=== PATIENT | female | born 1985 | race Caucasian/White ===

== ENCOUNTER 2022-08-12 18:23 | Inpatient (IN) | payer SELFPAY ==
[2022-08-12] MEDS ORDERED: NA CHLORIDE 0.9% 1,000 ML ONE (19:21)
[2022-08-12] MEDS ORDERED: FENTANYL CITR 100 MCG/2 ML ONE (19:21)
[2022-08-12 19:46] LABS: Absolute Lymphocytes (CBC) 2.2 K/uL (0.7-4.9); Hematocrit 38.3 % (36.0-45.0); Lymphocytes % 15.3 % (15.3-44.8); MCV 85.6 fL (80-100); MPV 9.5 fL (7.6-11.3); RBC Red Blood Cell Count 4.47 M/uL (3.86-4.86)
[2022-08-12 20:00] LABS: Albumin 2.5 g/dL (3.4-5.0); Bilirubin Total 0.3 mg/dL (0.2-1.0); Potassium 3.2 mEq/L (3.5-5.1); Protein, Total 6.8 g/dL (6.4-8.2)
--- NOTE | 2022-08-12 20:47 | RAD REPORT ---
EXAM DESCRIPTION: CT - Soft Tissue Neck W/Contr - 08/12/2022 8:23 pm CLINICAL HISTORY: Neck pain with sore throat. Difficulty swallowing COMPARISON: None. TECHNIQUE: Computed axial tomography of the neck was obtained. 50 cc Isovue 300 was administered in travenously. Coronal and sagittal reconstruction was performed. All CT scans are performed using dose optimization technique as appropriate and may include automated exposure control or mA/KV adjustment according to patient size. FINDINGS: The tonsils bilaterally are enlarged. Subtle 7 millimeter low-density area right tonsil.T he oropharynx is narrowed. Small amount of ill-defined retropharyngeal fluid is present. It extends from C3-C5. No enhancing rim . No air The remainder of the pharynx, tongue base, larynx and subglottic trachea appear unremarkable 3 millimeter calcification left parotid gland likely not significant. The right parotid, submandibula r and thyroid glands are unremarkable Several enlarged bilateral lymph nodes. The largest lies and at the left submandibular region. No fluid within the sinuses/mastoids IMPRESSION: Bilateral enlarged tonsils presumably a tonsillitis. Subtle 7 millimeter low-density are a right tonsil may represent a very early abscess Small amount of ill-defined retropharyngeal fluid. A cellulitis is favored over an abscess. This shou ld be correlated clinically. If the patient's symptoms do not improve then a followup MRI imaging wou ld recommended. Neck lymphadenopathy probably reactive in nature. However, as neoplasm can have this appearance it is recommended that the patient have a followup ultrasound in 2-3 months to assess stability/resolution
--- NOTE | 2022-08-12 21:22 | ER ---
Nurse's Notes [facility] Name: Kaleigh Rosas Age: 36 yrs Sex: Female : 1985 Arrival Date: 08/12/2022 Time: 18:23 Bed 14 Private MD: Diagnosis: Acute streptococcal tonsillitis, unspecified Presentation: 08/12 18:28 Chief complaint: Patient states: Sore throat for 3 days, getting worse, unable to nj1 swallow today. Coronavirus screen: Vaccine status: Patient reports receiving the 2nd dose of the covid vaccine. Ebola Screen: Patient denies travel to an Ebola-affected area in the 21 days before illness onset. Initial Sepsis Screen: Does the patient meet any 2 criteria? No. Patient's initial sepsis screen is negative. Does the patient have a suspected source of infection? No. Patient's initial sepsis screen is negative. Risk Assessment: Do you want to hurt yourself or someone else? Patient reports no desire to harm self or others. Onset of symptoms was August 10, 2022. 18:28 Method Of Arrival: Ambulatory [facility] 18:28 Acuity: NORMA 3 nj1 Historical: - Allergies: 18:30 PENICILLINS; nj1 18:30 Mycins; nj1 18:30 Aspirin; nj1 - PMHx: 18:30 Diabetes mellitus; PCOS; nj1 - Immunization history:: Client reports receiving the 2nd dose of the Covid vaccine. - Social history:: Smoking status: Patient reports the use of cigarette tobacco products, smokes one pack cigarettes per day. Reported history of juuling and/or vaping. Screenin:45 [facility] ED Fall Risk Assessment (Adult) History of falling in the last 3 months, kc6 including since admission No falls in past 3 months (0 pts) Confusion or Disorientation No (0 pts) Intoxicated or Sedated No (0 pts) Impaired Gait No (0 pts) Mobility Assist Device Used No (0 pt) Altered Elimination No (0 pt) Score/Fall Risk Level 0 - 2 = Low Risk Oriented to surroundings, Maintained a safe environment, Educated pt \\T\\ family on fall prevention, incl call for assistance when getting out of bed, Assessed \\T\\ reinforced patient's understanding of fall precautions, Hourly rounding (assess needs \\T\\ fall precautionary measures) done. Abuse screen: Denies threats or abuse. Denies injuries from another. Nutritional screening: No deficits noted. Tuberculosis screening: No symptoms or risk factors identified. Assessment: 18:45 General: Appears in no apparent distress. uncomfortable, ill, obese, Behavior is calm, kc6 cooperative, appropriate for age. Pain: Complains of pain in "sore throat". Neuro: [place] Agitation-Sedation Scale (RASS): 0 - Alert and Calm Level of Consciousness is awake, alert, obeys commands, Oriented to person, place, time, situation, Appropriate for age. Cardiovascular: Capillary refill < 3 seconds. Respiratory: Airway is patent Trachea midline Respiratory effort is even, unlabored, Respiratory pattern is regular, symmetrical, Breath sounds are clear bilaterally. GI: No signs and/or symptoms were reported involving the gastrointestinal system. : No signs and/or symptoms were reported regarding the genitourinary system. EENT: Throat is reddened has enlarged tonsils bilaterally with gag reflex present. Derm: No signs and/or symptoms reported regarding the dermatologic system. Skin is intact, is healthy with good turgor, Skin is pink, warm \\T\\ dry. Musculoskeletal: No signs and/or symptoms reported regarding the musculoskeletal system. Circulation, motion, and sensation intact. Capillary refill < 3 seconds, Range of motion: intact in all extremities. 19:20 General: Appears in no apparent distress. uncomfortable, Behavior is calm, cooperative. lg3 Pain: Complains of pain in throat Noted to be grimacing, resistant to movement. Neuro: No deficits noted. [place] Agitation-Sedation Scale (RASS): 0 - Alert and Calm Level of Consciousness is awake, alert, obeys commands, Oriented to person, place, time, situation. Cardiovascular: No deficits noted. Denies chest pain, shortness of breath, Capillary refill < 3 seconds Clubbing of nail beds is absent JVD is absent Patient's skin is warm and dry. Respiratory: No deficits noted. Airway is patent Trachea midline Respiratory effort is even, unlabored, Respiratory pattern is regular, symmetrical, Breath sounds are clear bilaterally. GI: No deficits noted. No signs and/or symptoms were reported involving the gastrointestinal system. Abdomen is round non-distended, obese, Abd is soft and non tender X 4 quads. : No deficits noted. No signs and/or symptoms were reported regarding the genitourinary system. EENT: Throat is reddened has patchy exudate has enlarged tonsils bilaterally. Derm: No deficits noted. No signs and/or symptoms reported regarding the dermatologic system. Skin is intact, is healthy with good turgor, Skin is dry, Skin is normal, Skin temperature is warm. Musculoskeletal: No deficits noted. No signs and/or symptoms reported regarding the musculoskeletal system. Circulation, motion, and sensation intact. Range of motion: intact in all extremities. 21:13 Reassessment: Patient appears in no apparent distress at this time. No changes from lg3 previously documented assessment. Patient and/or family updated on plan of care and expected duration. Pain level reassessed. Patient is alert, oriented x 3, equal unlabored respirations, skin warm/dry/pink. Vital Signs: 18:28 BP 112 / 72; Pulse 86; Resp 18; Temp 98.9; Pulse Ox 99% on R/A; Weight 113.4 kg; Height nj1 5 ft. 3 in. ; Pain 10/10; 19:20 BP 120 / 73; Pulse 81; Resp 17; Pulse Ox 99% on R/A; lg3 18:28 Body Mass Index 44.29 (113.40 kg, 160.02 cm) nj1 18:28 Pain Scale: Adult nj1 ED Course: 18:25 Patient arrived in ED. ts1 18:30 Triage completed. nj1 18:31 Demond Boyd PA is PHCP. cp 18:31 Demond Silva MD is Attending Physician. cp 18:32 Arm band placed on right wrist. nj1 18:41 Lacy Carreon, RN is Primary Nurse. kc6 18:45 Patient has correct armband on for positive identification. Bed in low position. Call kc6 light in reach. Side rails up X 1. Adult w/ patient. 18:55 Inserted saline lock: 20 gauge in right antecubital area, using aseptic technique. db Blood collected. 20:25 CT Soft Tissue Neck W/contr In Process Unspecified. EDMS 21:22 Tristan Todd MD is Hospitalizing Provider. cp 21:30 Procalcitonin Sent. lg3 21:30 Blood Culture Adult (2) Sent. lg3 22:39 No provider procedures requiring assistance completed. Patient admitted, IV remains in lg3 place. intact, No redness/swelling at site. Administered Medications: 19:15 Not Given (med not available. provider notified): Viscous Lidocaine Mucous Membrane lg3 Liquid (4 %) 5 ml Mucous Membrane once 19:19 Drug: NS 0.9% IV 1000 ml Route: IV; Rate: 1 bolus; Site: right antecubital; lg3 21:33 Follow up: IV Status: Completed infusion; IV Intake: 1000ml lg3 19:19 Drug: fentaNYL (PF) IVP 25 mcg Route: IVP; Site: right antecubital; lg3 21:30 Follow up: Response: No adverse reaction; Marked relief of symptoms lg3 21:40 Drug: Rocephin IV 1 grams Route: IV; Rate: calculated rate; Site: right antecubital; pf1 22:41 Follow up: Response: No adverse reaction; IV Status: Completed infusion; IV Intake: [id number] 21:42 Drug: Decadron - Dexamethasone IVP 10 mg Route: IVP; Site: right antecubital; pf1 22:41 Follow up: Response: No adverse reaction lg3 21:44 Drug: Potassium PO Effervescent Tablet 50 mEq Route: PO; pf1 22:41 Follow up: Response: No adverse reaction lg3 Medication: 22:39 VIS not applicable for this client. lg3 Intake: 21:33 IV: 1000ml; Total: 1000ml. lg3 22:41 IV: 10ml; Total: 1010ml. lg3 Outcome: 21:22 Decision to Hospitalize by Provider. cp 22:39 Admitted to Med/surg accompanied by tech, via wheelchair, room 417, Report called to 3 Faustino 22:39 Condition: stable 22:39 Instructed on the need for admit, Demonstrated understanding of instructions. 22:52 Patient left the ED. lg3 Signatures: Dispatcher [employer] EDMS Demond Boyd PA PA cp Crissy Smith RN RN lg3 Lacy Carreon RN RN [email or web address] Petra Guzman RN RN db Finley, Pamala, RN RN pf1 Mima Kaplan RN RN nj1 Sarah Jack PAS PAS ts1 Corrections: (The following items were deleted from the chart) 18:32 18:28 Pulse 86bpm; Resp 18bpm; Pulse Ox 99% RA; Temp 98.9F; 113.4 kg; Height 5 ft. 3 nj1 in.; BMI: 44.2; Pain 11/14, Adult; nj1 18:32 18:28 Acuity: NORMA 4 nj1 nj1
--- NOTE | 2022-08-12 21:22 | EDPHYS ---
Physician Documentation [facility] Name: Kaleigh Rosas Age: 36 yrs Sex: Female : 1985 Arrival Date: 08/12/2022 Time: 18:23 Bed 14 Private MD: [place] Physician Demond Silva HPI: 08/12 18:50 This 36 yrs old Female presents to ER via Ambulatory with complaints of Sore Throat. cp 18:50 The patient presents with sore throat, dysphagia, of both solids and liquids. The cp patient describes throat pain as constant. Onset: The symptoms/episode began/occurred 3 day(s) ago. Severity of symptoms: in the emergency department the symptoms are unchanged, despite home interventions. Modifying factors: the symptoms are aggravated by swallowing. Associated signs and symptoms: Pertinent positives: dysphagia, Pertinent negatives chest pain, cough, diarrhea, vomiting. Historical: - Allergies: 18:30 PENICILLINS; nj1 18:30 Mycins; nj1 18:30 Aspirin; nj1 - PMHx: 18:30 Diabetes mellitus; PCOS; nj1 - Immunization history:: Client reports receiving the 2nd dose of the Covid vaccine. - Social history:: Smoking status: Patient reports the use of cigarette tobacco products, smokes one pack cigarettes per day. Reported history of juuling and/or vaping. ROS: 18:55 Constitutional: Positive for poor PO intake, Negative for fever. cp 18:55 Eyes: Negative for injury, pain, redness, and discharge. cp 18:55 ENT: Positive for difficulty swallowing, sore throat, Negative for drainage from ear(s), ear pain, sinus congestion, difficulty handling secretions. 18:55 Cardiovascular: Negative for chest pain, edema, palpitations. 18:55 Respiratory: Negative for cough, shortness of breath, wheezing. 18:55 Abdomen/GI: Negative for abdominal pain, vomiting, diarrhea, constipation, anorexia. 18:55 Neuro: Negative for altered mental status. 18:55 All other systems are negative. Exam: 19:00 Constitutional: The patient appears in no acute distress, alert, awake, non-toxic, well cp developed, well nourished, obviously ill, uncomfortable. 19:00 Head/Face: Normocephalic, atraumatic. cp 19:00 Eyes: Periorbital structures: appear normal, Conjunctiva: normal, no exudate, no cp injection, Sclera: no appreciated abnormality, Lids and lashes: appear normal, bilaterally. 19:00 ENT: External ear(s): are unremarkable, Ear canal(s): are normal, clear, TM's: dullness, bilaterally, Nose: is normal, Mouth: Lips: moist, Oral mucosa: moist, Posterior pharynx: Airway: no evidence of obstruction, patent, Tonsils: bilaterally enlarged, with erythema, with exudate, Uvula: midline, erythema, that is marked, exudate, is not appreciated. 19:00 Neck: ROM/movement: limited range of motion, is not appreciated, Meningeal signs: are not present, nuchal rigidity, is not appreciated. 19:00 Chest/axilla: Inspection: normal. 19:00 Cardiovascular: Rate: normal, Rhythm: regular. 19:00 Respiratory: the patient does not display signs of respiratory distress, Respirations: normal, no use of accessory muscles, no retractions, labored breathing, is not present, Breath sounds: decreased breath sounds, are not appreciated, + upper airway congestion. wheezing: is not appreciated. 19:00 Abdomen/GI: Inspection: obese Bowel sounds: active, all quadrants, Palpation: soft, in all quadrants, mild abdominal tenderness, in all quadrants. 19:00 Back: CVA tenderness, is absent. 19:00 Skin: no rash present. 19:00 Neuro: Orientation: to person, place \T\ time. Mentation: able to follow commands, slow to respond, Motor: moves all fours, general weakness with no focal deficits. Vital Signs: 18:28 BP 112 / 72; Pulse 86; Resp 18; Temp 98.9; Pulse Ox 99% on R/A; Weight 113.4 kg; Height nj1 5 ft. 3 in. ; Pain 10/10; 19:20 BP 120 / 73; Pulse 81; Resp 17; Pulse Ox 99% on R/A; lg3 18:28 Body Mass Index 44.29 (113.40 kg, 160.02 cm) nj1 18:28 Pain Scale: Adult nj1 MDM: 18:34 Patient medically screened. cp 21:00 ED course: message left on voicemail for DR Sheldon. cp 21:25 Data reviewed: vital signs, nurses notes, lab test result(s), radiologic studies, CT cp scan. 21:25 Differential diagnosis: group A strep tonsillitis, peritonsillar abscess cp retropharyngeal abcess. Consideration of Admission/Observation Patient was admitted/placed on observation. Management of patient was discussed with the following: Technology Specialist: DR Sheldon who will consult on patient. Patient to be admitted to hospitalist, Zackary Juárez, CORE MACHINE OPERATOR after discussion of today's results. 08/12 18:41 Order name: CBC with Diff; Complete Time: 20:00 08/12 20:00 Interpretation: Normal except: WBC 14.50; LEFTY% 75.7; NEUT A 11.0. 08/12 18:41 Order name: CMP; Complete Time: 20:50 08/12 20:50 Interpretation: Normal except: K 3.2; GLUC 161; BUN 6; AST 8; ALT 12; CA 8.4; ALB 2.5; cp GLOB 4.3; A/G 0.6. 07 18:41 Order name: Lactate w/ 2H reflex if indic.; Complete Time: 20:00 08/12 20:00 Interpretation: Reviewed. 08/12 18:41 Order name: Protime (+inr) 08/12 18:41 Order name: Camp Screen Profile; Complete Time: 20:50 08/12 18:41 Order name: Strep; Complete Time: 20:00 08/12 20:00 Interpretation: Abnormal: GP A STREP SC GROUP A STREP SCREEN-- POSITIVE. 08/12 21:00 Order name: Blood Culture Adult (2) 08/12 21:00 Order name: Procalcitonin 08/12 18:41 Order name: CT Soft Tissue Neck W/contr; Complete Time: 20:50 08/12 18:41 Order name: Accucheck; Complete Time: 18:56 08/12 18:41 Order name: Cardiac monitoring; Complete Time: 18:56 08/12 18:41 Order name: IV Saline Lock - Large Bore; Complete Time: 18:56 08/12 18:41 Order name: Labs collected and sent; Complete Time: 18:56 08/12 18:41 Order name: O2 Per Protocol; Complete Time: 18:56 08/12 18:41 Order name: O2 Sat Monitoring; Complete Time: 18:57 cp 08/12 18:41 Order name: Vital Signs; Complete Time: 18:57 cp Administered Medications: 19:15 Not Given (med not available. provider notified): Viscous Lidocaine Mucous Membrane lg3 Liquid (4 %) 5 ml Mucous Membrane once 19:19 Drug: NS 0.9% IV 1000 ml Route: IV; Rate: 1 bolus; Site: right antecubital; lg3 21:33 Follow up: IV Status: Completed infusion; IV Intake: 1000ml lg3 19:19 Drug: fentaNYL (PF) IVP 25 mcg Route: IVP; Site: right antecubital; lg3 21:30 Follow up: Response: No adverse reaction; Marked relief of symptoms lg3 21:40 Drug: Rocephin IV 1 grams Route: IV; Rate: calculated rate; Site: right antecubital; pf1 22:41 Follow up: Response: No adverse reaction; IV Status: Completed infusion; IV Intake: [id number] 21:42 Drug: Decadron - Dexamethasone IVP 10 mg Route: IVP; Site: right antecubital; pf1 22:41 Follow up: Response: No adverse reaction lg3 21:44 Drug: Potassium PO Effervescent Tablet 50 mEq Route: PO; pf1 22:41 Follow up: Response: No adverse reaction lg3 Disposition Summary: 08/12/22 21:22 Hospitalization Ordered Hospitalization Status: Inpatient Admission cp Provider: Tristan Todd cp Location: Telemetry/[facility] (Inpatient) cp Condition: Stable cp Problem: new cp Symptoms: have improved cp Bed/Room Type: Standard cp Room Assignment: 417(08/12/22 21:47) cg Diagnosis - Acute streptococcal tonsillitis, unspecified cp Forms: - Medication Reconciliation Form cp - SBAR form cp Signatures: Dispatcher [employer] EDMS Demond Boyd PA PA cp Rosalinda Cochran RN RN cg Crissy Smith RN RN lg3 Mily Chaudhry RN RN pf1 Mima Kaplan RN RN nj1 Corrections: (The following items were deleted from the chart) 21:47 21:22 cp cg
[2022-08-12] MEDS ORDERED: POTASSIUM 25 MEQ EFFERV TAB ONE (21:41)
[2022-08-12] MEDS ORDERED: CEFTRIAXONE 1000 MG/VIAL ONE (21:41)
[2022-08-12] MEDS ORDERED: dexAMETHasone 10 MG/ML VIAL ONE (21:41)
--- NOTE | 2022-08-12 22:17 | P.HP ---
Certification for Inpatient Patient admitted to: Inpatient With expected LOS: <2 Midnights Patient will require the following post-hospital care: None Practitioner: I am a practitioner with admitting privileges, knowledge of patient current condition, hospital course, and medical plan of care. Services: Services provided to patient in accordance with Admission requirements found in Title 42 Section 412.3 of the Code of Federal Regulations Patient History Date of Service: 08/12/22 Reason for admission: Peritonsillar abscess, retropharyngeal cellulitis History of Present Illness: 36-year-old female with history of dau-tejvmyi-kqttoiskm diabetes, PCOS presents to the emergency department with chief complaint of sore throat, difficulty swallowing which started approximate 2 days ago. She is evaluated in the emergency department her labs are significant for leukocytosis white blood cell count 14.5 potassium 3.2 glucose 161 lactic acid 1.5 positive for strep a CT soft tissue neck performed which revealed bilateral enlarged tonsils presumably a tonsillitis. Subtle 7 mm low-density area right tonsil may represent a very early abscess. Small amount of ill-defined retropharyngeal fluid. A cellulitis is favored over an abscess. ED staff spoke with ENT on-call who recommended admission, they will consult. Patient tolerating secretions, able to speak although her voice is mildly muffled, mild trismus noted. No dyspnea. Allergies Penicillins Allergy (Verified 08/12/22 22:11) unknown - Past Medical/Surgical History -: PCOS -: Diabetes mellitus type 2 Past Surgical History: Reviewed- Non-Contributory Psychosocial/ Personal History: Patient currently is homeless - Family History Family History: Reviewed- Non-Contributory - Social History Smoking Status: Current every day smoker Alcohol use: No CD- Drugs: No Caffeine use: Yes Place of Residence: Home Review of Systems 10-point ROS is otherwise unremarkable General: Weakness, Malaise ENT: Throat Pain, Throat Swelling Physical Examination - Physical Exam General: Alert, In no apparent distress, Oriented x3, Obese HEENT: Atraumatic, Other (Tonsillar erythema, edema. Mild trismus. Tolerating secretions. Muffled voice.) Neck: Supple, 2+ carotid pulse no bruit, No LAD, Without JVD or thyroid abnormality Respiratory: Clear to auscultation bilaterally, Normal air movement Cardiovascular: Regular rate/rhythm, Normal S1 S2 Capillary refill: <2 Seconds Gastrointestinal: Normal bowel sounds, No tenderness Musculoskeletal: No tenderness Integumentary: No rashes Neurological: Normal gait, Normal speech, Normal strength at 5/5 x4 extr, Normal tone, Normal affect - Studies Laboratory Data (last 24 hrs) 08/12/22 18:56: Sodium 138, Potassium 3.2 L, BUN 6 L, Creatinine 0.59, Glucose 161 H, Total Bilirubin 0.3, AST 8 L, ALT 12 L, Alkaline Phosphatase 63 08/12/22 18:56: WBC 14.50 H, Hgb 12.4, Hct 38.3, Plt Count 355 Microbiology Data (last 24 hrs): 08/12/22 18:50 Throat Group A Streptococcus Rapid Screen - Final Assessment and Plan - Plan Assessment: Tonsillitis, 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 after midnight in case intervention is deemed necessary. She is tolerating her own secretions, mild trismus, muffled voice. Continue antibiotics clindamycin as she is penicillin allergic, continue Decadron, as needed pain medications and antiemetics. Appreciate further input from an ENT. Diabetes mellitus type [id number] ACHS Accu-Chek, sliding scale insulin, A1c in the morning. PCOS Continue home meds. DVT PPX: SCD Code status: Full Discharge Plan: Home Plan to discharge in: 48 Hours - Advance Directives Does patient have a Living Will: No Does patient have a Durable POA for Healthcare: No - Code Status/Comfort Care Code Status Assessed: Yes (Full code) Critical Care: No Time Spent Managing Pts Care (In Minutes): 70
[2022-08-12 22:40] LABS: Protime INR 1.22
[2022-08-12] MEDS: CLINDAMYCIN INJ 900 MG in NA CHLORIDE 0.9% 50 ML IV SCH (23:00)
[2022-08-12] MEDS ORDERED: ACETAMINOPHEN 500 MG TAB PO PRN (23:02)
[2022-08-12] MEDS ORDERED: ONDANSETRON 4 MG/2 ML VIAL IV PRN (23:02)
[2022-08-12 23:09] VITALS: BMI 44.2
[2022-08-12 23:25] VITALS: O2SAT 99
[2022-08-12] MEDS: MORPHINE 2 MG/ML SYR IV PRN (23:31)
[2022-08-12] MEDS: NA CHLORIDE 0.9% 1,000 ML IV SCH (23:33)
[2022-08-13] MEDS: dexAMETHasone 4 MG/ML VIAL IV SCH ×2 (01:45→10:11)
[2022-08-13 04:22] LABS: Absolute Lymphocytes (CBC) 0.9 K/uL (0.7-4.9); Hematocrit 38.3 % (36.0-45.0); MCV 85.4 fL (80-100); MPV 9.4 fL (7.6-11.3); RBC Red Blood Cell Count 4.49 M/uL (3.86-4.86)
[2022-08-13] MEDS: INSULIN -REGULAR HUMAN 50 UNIT/0.5 ML ML SQ SCH ×4 (07:30→20:45)
[2022-08-13 08:15] LABS: Blood Morphology Comment NOT SEEN (NOT SEEN); Platelet Estimate ADEQ; White Blood Cell Scan NEUTROPHILIA (OK)
[2022-08-13] MEDS: CLINDAMYCIN 900MG/D5W 900 MG/50 ML IVPB IV SCH ×2 (10:11→17:31)
[2022-08-13] MEDS: NA CHLORIDE 0.9% 1,000 ML IV SCH (10:12)
--- NOTE | 2022-08-13 15:44 | P.PN ---
Subjective Date of Service: 08/13/22 Chief Complaint: Peritonsillar abscess, retropharyngeal cellulitis Since admission, she reports that her sore throat has improved some. She denies any fevers since admission. She has some dysphagia due to throat pain. She denies chest pain, palpitations, shortness of breath. Review of Systems 10-point ROS is otherwise unremarkable General: Chills ENT: Throat Pain, Throat Swelling Physical Examination - Vital Signs Temperature: 98.6 F Blood Pressure: 108/59 Pulse: 64 Respirations: 18 Pulse Ox (%): 97 - Physical Exam General: Alert, In no apparent distress, Oriented x3 HEENT: Atraumatic, Other (posterior oropharyngeal erythema with right tonsillar edema. Right-sided tonsillar exudate noted. prominent hirsutism noted.), Sclerae nonicteric Respiratory: Clear to auscultation bilaterally, Normal air movement Cardiovascular: No edema, Regular rate/rhythm, Normal S1 S2, No gallops, No rubs, No murmurs Gastrointestinal: Normal bowel sounds, Soft and benign, Non-distended, No tenderness, No rebound, No guarding Musculoskeletal: No clubbing Integumentary: No rashes Neurological: Normal speech, Normal affect - Studies Laboratory Data (last 24 hrs) 08/12/22 18:56: PT 13.4 H, INR 1.22 08/12/22 18:56: Sodium 138, Potassium 3.2 L, BUN 6 L, Creatinine 0.59, Glucose 161 H, Total Bilirubin 0.3, AST 8 L, ALT 12 L, Alkaline Phosphatase 63 08/12/22 18:56: WBC 14.50 H, Hgb 12.4, Hct 38.3, Plt Count 355 Microbiology Data (last 24 hrs): 08/12/22 21:30 Blood - Blood Anaerobic Blood Culture - Final 08/12/22 18:50 Throat Group A Streptococcus Rapid Screen - Final Assessment And Plan - Plan # Group A Streptococcal Pharyngitis and Tonsillitis with associated Retropharyngeal Cellulitis and possible Right Peritonsillar Abscess - Does not meet sepsis criteria - CT neck soft tissue = " bilateral enlarged tonsils presumably a tonsillitis. Subtle 7 millimeter lowdensity area right tonsil may represent a very early abscess. Small amount of illdefined retropharyngeal fluid. A cellulitis is favored over an abscess. This should be correlated clinically. If the patient's symptoms do not improve then a follow-up MRI imaging would be recommended. Neck lymphadenopathy probably reactive in nature. However, as neoplasm can have this appearance it is recommended that the patient have a follow-up ultrasound in 2-3 months to assess stability/resolution." - Otorhinolaryngology consulted and spoke with Dr. Sheldon - recommendations appreciated - Recommended continuing clindamycin for a total of 10 days Counseled to have surveillance imaging to evaluate the lymph nodes noted on her CT scan. She was advised that these have the potential to represent malignancy. She agreed to make follow-up appointment. - Will observe for an additional day. If symptoms improve tomorrow, can possibly discharge in AM - PRN pain medicine - Start clear liquid diet - advance as tolerated # Hypergylcemia in Type II Diabetes Mellitus # Polycystic Ovarian Syndrome - Hgb A1c pending - Continue home metformin - Correction scale insulin Tristan Todd M.D.
[2022-08-13] MEDS ORDERED: METFORMIN HCL 850 MG TAB PO SCH (17:00)
[2022-08-13] MEDS: MORPHINE 2 MG/ML SYR IV PRN (22:03)
[2022-08-14] MEDS: CLINDAMYCIN 900MG/D5W 900 MG/50 ML IVPB IV SCH ×2 (00:16→08:24)
--- NOTE | 2022-08-14 08:09 | P.CNS ---
Date of Consult: 08/13/22 Reason for Consult: abnormal CT, tonsillitis Requesting Physician: Demond Silva Primary Care Provider: none Chief Complaint: Peritonsillar abscess, retropharyngeal cellulitis History of Present Illness: The patient presented to the emergency room with a 2-day history of sore throat and no prior medical treatment. Strep test was positive. Leukocytosis was noted. CT of the neck with contrast noted tonsillitis with possible retropharyngeal fluid but no rim-enhancing abscess or free air. She was admitted and treated with IV clindamycin, a dose of Rocephin, IV fluids and IV steroids. I evaluated her in person approximately 12 hours after her presentation to the emergency room. At that time she reported significant improvement in her sore throat and throat pain. She had tolerated some clear liquids in the late evening but was made n.p.o. at midnight in case of the need for surgical intervention. Allergies Penicillins Allergy (Verified 08/12/22 22:11) unknown Home Medications: Metformin HCl 850 mg PO TID 08/13/22 - Past Medical/Surgical History Diabetic: Yes -: PCOS -: Diabetes mellitus type 2 Psychosocial/ Personal History: Patient currently is homeless - Social History Smoking Status: Current every day smoker Alcohol use: No CD- Drugs: No Caffeine use: Yes Place of Residence: [facility] Review of Systems Reviewed Physical Examination Temp Pulse Resp BP Pulse Ox 97.4 F 59 16 101/58 L 96 08/14/22 04:00 08/14/22 04:00 08/14/22 04:00 08/14/22 06:00 08/14/22 04:00 General: Alert, Obese, Other (Tolerating secretions) HEENT: Atraumatic, Normocephalic, Other (Marked hirsutism. Oral dryness. Palate and uvula is symmetric without significant erythema. ) Neck: Other (Difficult to palpate LAD due to body habitus. Unable to palpate parotid mass or stone) Respiratory: Other (No respiratory distress) Imagings Data: Images are personally reviewed. There is no rim enhancement noted in the oral pharynx or retropharynx. The calcification in the left parotid likely represents a salivary stone which is currently asymptomatic. Conclusions/Impression: Overall, the patient appears to be responding to medical therapy including clinical improvement in regards to pain and improvement in leukocytosis. Given the patient's social situation with poorly controlled diabetes, I recommend continued IV antibiotics for additional 24 hours with clinical reassessment. If she continues to do well, I would recommend discharge on p.o. clindamycin 300 mg 3 times daily for 10 days and encouraged the patient to seek follow-up outpatient care for improved management of her diabetes.
--- NOTE | 2022-08-14 08:13 | P.PN ---
Date of Service: 08/14/22 Overnight, the patient reported some mild throat pain in the evening which responded to prescribed medications. She was able to tolerate solid foods for dinner and is awaiting delivery of breakfast. She has no new complaints in regards to the throat. NAD. Alert and oriented. No discernible trismus. No significant swelling noted in the oral pharynx. Patient has normal active range of motion in neck rotation, flexion and extension. The patient appears to be doing well and has now completed 36 hours of IV therapy. There is no indication for acute surgical intervention at this time. ENT will sign off at this time but remain available for any change in patient condition. Thank you
[2022-08-14] MEDS: INSULIN -REGULAR HUMAN 50 UNIT/0.5 ML ML SQ SCH (08:25)
--- NOTE | 2022-08-14 09:01 | P.DS ---
Admission Date: 08/12/22 Discharge Date: 08/14/22 Primary Care Provider: none Disposition: ROUTINE DISCHARGE Discharge Condition: FAIR Reason for Admission: Peritonsillar abscess, retropharyngeal cellulitis Consultations: ENT-Dr. Sheldon. Brief History of Present Illness: 36-year-old female with history of [id number] diabetes, PCOS presented to the emergency department with chief complaint of sore throat, difficulty swallowing of 2 days duration. She was evaluated in the emergency department her labs are significant for leukocytosis white blood cell count 14.5 potassium 3.2 glucose 161 lactic acid 1.5 positive for strep a CT soft tissue neck performed which revealed bilateral enlarged tonsils presumably a tonsillitis. Subtle 7 mm low-density area right tonsil may represent a very early abscess. Small amount of ill-defined retropharyngeal fluid. A cellulitis is favored over an abscess. ED staff spoke with ENT on-call who recommended admission. Patient tolerating secretions, able to speak. No dyspnea. Patient was admitted for further management. Hospital Course: Group A Streptococcal Pharyngitis and Tonsillitis with associated Retrophary ngeal Cellulitis. - She did not meet sepsis criteria - CT neck soft tissue = " bilateral enlarged tonsils presumably a tonsillitis. Subtle 7 millimeter lowdensity area right tonsil may represent a very early abscess. Small amount of illdefined retropharyngeal fluid. A cellulitis is favored over an abscess. This should be correlated clinically. If the patient's symptoms do not improve then a follow-up MRI imaging would be recommended. Neck lymphadenopathy probably reactive in nature. - Otorhinolaryngology consulted and seen by Dr. Sheldon who recommended medical management with antibiotics. Patient was treated with IV clindamycin, noted history of penicillin allergy. Patient's symptoms improved with IV clindamycin. ENT recommended clindamycin for a total of 10 days. Patient has tolerated solid diet and endorses significant improvement in her throat pain. Hypergylcemia in Type II Diabetes Mellitus/Polycystic Ovarian Syndrome Hgb A1c is 7.2 - Continue home metformin resumed and prescribed her home dose of metformin on discharge. Vital Signs/Physical Exam: Temp Pulse Resp BP Pulse Ox 97.4 F 59 16 101/58 L 96 08/14/22 04:00 08/14/22 04:00 08/14/22 04:00 08/14/22 06:00 08/14/22 04:00 General: Alert, In no apparent distress, Oriented x3, Obese HEENT: Mucous membr. moist/pink Neck: Supple, JVD not distended Respiratory: Clear to auscultation bilaterally, Normal air movement Cardiovascular: No edema, Regular rate/rhythm, Normal S1 S2 Gastrointestinal: Normal bowel sounds, Soft and benign, Non-distended, No tenderness Musculoskeletal: No swelling Integumentary: No rashes, No cyanosis Neurological: Normal strength at 5/5 x4 extr Laboratory Data at Discharge: WBC 13.50 thou/uL (4.3-10.9) H 08/13/22 03:58 Hgb 12.6 g/dL (12.0-15.0) 08/13/22 03:58 Hct 38.3 % (36.0-45.0) 08/13/22 03:58 Plt Count 300 thou/uL (152-406) 08/13/22 03:58 PT 13.4 SECONDS (9.5-12.5) H 08/12/22 18:56 INR 1.22 08/12/22 18:56 Sodium 138 mEq/L (136-145) 08/14/22 07:22 Potassium 4.0 mEq/L (3.5-5.1) 08/14/22 07:22 BUN 12 mg/dL (7-18) 08/14/22 07:22 Creatinine 0.63 mg/dL (0.55-1.02) 08/14/22 07:22 Glucose 245 mg/dL (74-106) H 08/14/22 07:22 Total Bilirubin 0.3 mg/dL (0.2-1.0) 08/12/22 18:56 AST 8 U/L (15-37) L 08/12/22 18:56 ALT 12 U/L (13-56) L 08/12/22 18:56 Alkaline Phosphatase 63 U/L (45-117) 08/12/22 18:56 Home Medications: Codeine/APAP [Tylenol W/Codeine #3 tab] 1 tab PO Q6HP PRN #12 tab 08/14/22 Ibuprofen 400 mg PO Q8H PRN #30 tab 08/14/22 Metformin HCl 850 mg PO TID #90 tab 08/14/22 clindamycin HCL [Clindamycin HCl] 300 mg PO Q6H #28 cap 08/14/22 New Medications: Codeine/APAP [Tylenol W/Codeine #3 tab] 1 tab PO Q6HP PRN #12 tab PRN Reason: Pain clindamycin HCL [Clindamycin HCl] 300 mg PO Q6H #28 cap Ibuprofen 400 mg PO Q8H PRN #30 tab PRN Reason: PAIN Metformin HCl 850 mg PO TID #90 tab Physician Discharge Instructions: Soft diet and advance as tolerated. Diet: Soft diet Followup: Aleena Sheldon MD [ACTIVE - CAN ADMIT] - Time spent managing pt's care (in minutes): 37
[2022-08-14 10:27] VITALS: BP 95/49; TEMP 97.6
== END 2022-08-14 10:34 | disposition home or self-care (01) | DRG 153 ==
LOC: ER 18:23 → ERHOLD 21:37 → 4TH 22:29
PROVIDERS: ADMIT Internal Medicine; ATTEND Internal Medicine
DX: J03.00 Acute streptococcal tonsillitis, unspecified (principal); Z68.41 Body mass index [BMI] 40.0-44.9, adult; J39.1 Other abscess of pharynx; E66.9 Obesity, unspecified; E28.2 Polycystic ovarian syndrome; E11.65 Type 2 diabetes mellitus with hyperglycemia; F17.210 Nicotine dependence, cigarettes, uncomplicated; B95.0 Streptococcus, group A, as the cause of diseases classified elsewhere; Z88.0 Allergy status to penicillin; Z88.6 Allergy status to analgesic agent; Z79.84 Long term (current) use of oral hypoglycemic drugs; Z59.00 Homelessness unspecified
CPT/HCPCS: 36415; 70491; 80048; 80053; 82947; 83036; 83605; 84145; 85025; 85610; 86308; 87040; 87081; 96361; 96365; 96375; 99285; J0696; J1100; J1815; J2270; J3010; J7030; Q9967